=== PATIENT | male | born 1960 | race Caucasian/White ===

== ENCOUNTER 2021-11-02 09:15 | Emergency (ER) | payer MEDICARE, OTHER ==
[~2021-11-02 09:15] MED LIST: BACLOFEN 10MG T10 MG PO; NEURONTIN300 M1 PO; SEIZURE MEDICATION
[2021-11-02] MEDS ORDERED: AMOX TR-K CLV1 EAC4 PO (10:26)
== END 2021-11-02 10:56 | disposition home or self-care (01) ==
LOC: FER 09:15
DX: S91.332A Puncture wound without foreign body, left foot, initial encounter (principal); F17.210 Nicotine dependence, cigarettes, uncomplicated; Z23 Encounter for immunization; W45.0XXA Nail entering through skin, initial encounter
CPT/HCPCS: 73630; 90471; 90715